=== PATIENT | male | born 1990 | race Caucasian/White ===

== ENCOUNTER 2020-01-11 10:05 | Inpatient (IN) | payer SELFPAY ==
[~2020-01-11] VITALS: Ht 177.8 cm; Wt 63.6 kg
--- NOTE | 2020-01-11 10:48 | NUR ---
DR. MUSTAFA AND DR TOMAS IN TO SEE PT.
[2020-01-11 10:56] LABS: BASOPHILS 0.5 % (0-2); EOSINOPHILS 5.6 % (0-7); HEMATOCRIT 42.2 % (42.0-54.0); HEMOGLOBIN 14.3 g/dL (13.5-17.5); LYMPHOCYTES 22.2 % (15-50); MCH 30.5 pg (26.0-34.0); MCHC 33.9 g/dL (31.0-37.0); MEAN PLATELET VOLUME 10.1 fL (7.4-10.4); NEUTROPHILS 65.7 % (40-80); PLATELET COUNT 225 10x3/uL (130-400); RBC 4.69 10x6/uL (4.20-6.10); RDW 12.8 % (11.5-14.5); WBC 5.5 10x3/uL (4.8-10.8)
[2020-01-11 11:02] LABS: APTT 32.5 SECONDS (22.8-39.4); INR 0.97 (0.85-1.17); PROTIME 12.9 SECONDS (11.6-15.0)
[2020-01-11 11:08] LABS: CALC OSMOLALITY 274 mosm/kg (275-300); CARBON DIOXIDE 26.1 mmol/L (21.0-32.0); CHLORIDE - SERUM 106 mmol/L (98-107); CREATININE - SERUM 0.9 mg/dL (0.6-1.3); GLUCOSE 102 mg/dL (74-106); POTASSIUM - SERUM 4.3 mmol/L (3.5-5.1); SODIUM 138 mmol/L (136-145); UREA NITROGEN 10 mg/dL (7-18); eGFR NON AFRICAN AMERICAN > 90 mL/min (90-120)
[2020-01-11 11:14] LABS: ALBUMIN 4.4 g/dL (3.4-5.0); ALKALINE PHOSPHATASE 92 U/L (30-120); ALT (SGPT) 22 U/L (10-68); BILIRUBIN - TOTAL 0.49 mg/dL (0.2-1.3); PROTEIN - SERUM 7.7 g/dL (6.4-8.2)
--- NOTE | 2020-01-11 11:28 | NUR ---
OR NURSE PRESENT TO TRANSPORT PATIENT AT THIS TIME. PT BELONGINGS PLACED IN BAG AND SENT WITH RN. CONSENTS SIGNED AND PLACED ON CHART. PT IN NO DISTRESS PRIOR TO LEAVING DEPARTMENT.
[2020-01-11 13:48] VITALS: BP 149/62
--- NOTE | 2020-01-11 14:18 | NUR ---
PATIENT RECEIVED TO ROOM FROM RECOVERY IVF INFUSING TO RT. ARM WITH SLING INTACT TO RIGHT ARM WITH RADIAL PULSES NOTED. DENIES ANY PAIN OR DISCOMFORT AT THIS TIME WITH CALL LIGHT IN REACH
[2020-01-11 14:27] VITALS: BP 149/62; Ht 177.8 cm; Wt 63.6 kg
[2020-01-11 15:56] VITALS: BP 127/78
[2020-01-11 20:32] VITALS: BP 110/59
--- NOTE | 2020-01-11 20:35 | NUR ---
LYING IN BED. ALERT AND ORIENTED X4. RESP EVEN AND NONLABORED. DRSG WITH DEE DEE WRAP NOTED TO RUE WITH SLING. RADIAL PULSE GOOD. SLIGHT EDEMA TO RT HAND. HAS SOME NUMBNESS IN RT HAND. ABLE TO WIGGLE FINGERS. RATES PAIN IN RUE 3. D5 1/2 NS @ 50 MLHR INFUSING IN LT AC WITHOUT DIFF. NO DISTRESS. SR ELEVATED X2. CL IN REACH.
--- NOTE | 2020-01-11 23:51 | NUR ---
MEDICATED WITH NORCO FOR C/O PAIN IN RUE RATING 4. CL IN REACH.
[2020-01-12 00:31] VITALS: BP 111/62
--- NOTE | 2020-01-12 01:57 | NUR ---
RESTING WITH EYES CLOSED. RESP EVEN AND NONLABORED. NO DISTRESS. CL IN REACH.
--- NOTE | 2020-01-12 04:26 | NUR ---
V/S TAKEN AT THIS TIME. DENIES NEEDS. CL IN REACH. NO DISTRESS.
[2020-01-12 05:57] VITALS: BP 115/68
[2020-01-12 08:16] VITALS: BP 113/71
--- NOTE | 2020-01-12 09:00 | NUR ---
SLING INTACT TO RUE WITH DECREASED EDEMA TO RT. HAND WITH CAP REFILL <3 SEC. ELEVATED ON PILLOW AT THIS TIME. IVF INFUSING TO RT. ARM W/O ANY S/S OF INFECTION/INFILTRATION. ENCOURAGED TO USE CALL LIGHT FOR ASSSIT WITH DRESSING INTACT TO RT. F/A AND DENIES ANY PAIN OR DISCOMFORT.
[2020-01-12 12:23] VITALS: BP 118/70
[2020-01-12] MEDS ORDERED: BACTRIM DS TAB1 EAC1 PO (13:13)
[2020-01-12] MEDS ORDERED: HYDROCODON-ACE1 EA10 PO (13:14)
--- NOTE | 2020-01-12 14:16 | OP ---
PATIENT NAME: ROCIO SAAB MEDICAL RECORD: [id number] :89 LOCATION:D.MS [id number] ADMISSION DATE:01/11/20 SURGEON: MAGDALENA MUSTAFA MD DATE OF OPERATION: 01/11/2020 PREOPERATIVE DIAGNOSIS: Grade II open ulna fracture. POSTOPERATIVE DIAGNOSIS: Grade II open ulna fracture. PROCEDURE: 1. I&D of open wound, to include skin, subcutaneous tissue, portions of fat, fascia, muscle and bone. 2. Open reduction internal fixation of the ulna fracture -- mid shaft. SURGEON: Magdalena Mustafa MD ANIMAL ANATOMIST: BERYL Whipple INTRAOPERATIVE COMPLICATIONS: None. SUMMARY OF PATHOLOGIC FINDINGS: Consistent with the patient's injury he had a minimally displaced ulnar fracture; however, it was opened. 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 He presented to the urgent care where he had a simple debridement and closure and awoke this morning with substantial and severe pain. He went back to the [facility] where x-rays showed that the patient had a fracture thus it making an open fracture and with the size of this incision, it was a grade II and he did not have appropriate irrigation and debridement for an open fracture. He was sent immediately to the ER. He had maintained as n.p.o. status. He was taken directly to the operating room for intervention that being I&D with plate fixation. OPERATIVE SUMMARY IN DETAIL: After obtaining the appropriate preoperative orthopedic surgery consent as well as anesthetic consultation, evaluation and clearance, the patient was brought to the operating room and placed on the operating table in a supine position. After general laryngeal mask airway was administered, tourniquet was placed on the proximal aspect of the right upper extremity. Right upper extremity was then prepped and draped in routine sterile fashion. The arm was elevated and exsanguinated, tourniquet was inflated to 250 mmHg. At this point, appropriate timeout was taken and agreed upon by all given the patient's unique identifiers. The patient's incision was somewhat diagonal. This was then opened for better access in a Z-plasty incision. Skin flaps were elevated and the wound was copiously irrigated at this point. The bone was found to have an apparent portion missing from the industrial type accident with this weed eater blade. After copious irrigation, curettage, and removal of small bone fragments as well as foreign material, the plate was then affixed under fluoroscopic guidance and put it in compression fashion with locking screws as well. Serial and sequential drill and fill technique was utilized. Radiographs were taken and submitted for radiologist using fluoroscopy. Wound was then irrigated again. While the patient did not have an extensor carpi ulnaris laceration, the paratenon of the ECU was cut, but the tendon itself was in good condition. Paratenon was closed with 2-0 Vicryl followed by fascial closure over the plate with 2-0 Vicryl and then final skin OPERATIVE REPORT [id number] ROCIO SAAB closure was done with 2-0 Vicryl and 4-0 Prolene by BERYL Whipple. Sterile dressings were applied. The tourniquet was deflated. The patient was awakened, taken to recovery room in stable condition. All final needle and sponge counts were correct. TRANSINT:[id number] Voice Confirmation ID: [id number] DOCUMENT ID: [id number] MOON LEMUS, MAGDALENA OAKES at 1416 CC: [id number] DICTATION DATE: 01/11/20 1243 PIPE LAYER HELPER: 01/11/202115 ADM IN [place] [id number] [place] [address]
--- NOTE | 2020-01-12 14:40 | NUR ---
IV DISCONNECTED AND VERBALIZED UNDERSTANDING OF DISCHARGE INSTRUCTIONS. STABLE AT TIME OF DISCHARGE.
--- NOTE | 2020-01-12 15:29 | MORECARE ---
CASE MANAGEMENT DISCHARGE SUMMARY PATIENT: ROCIO SAAB UNIT: [id number] ADM DATE: 01/11/20 AGE: 29 : [birth year] SEX: M ROOM/BED: D.2233 AUTHOR: BERNICE BANERJEE PHYSICIAN: REFERRING PHYSICIAN: MAGDALENA MUSTAFA MD DATE OF SERVICE: 01/12/20 Discharge Plan Patient Name: ROCIO SAAB [facility] [facility] 1990 Planned Disposition: Home Anticipated Discharge Date: 01/12/20 Discharge Date: 01/12/2020 Expected LOS: 1 Initial Reviewer: [email or web address] Initial Review Date: 01/11/2020 Generated: 01/12/20 4:28 pm Patient Name: ROCIO SAAB Page [id number] at 1529 All edits/amendments must be made on the electronic document DICTATION DATE: 01/12/20 1528 DOT COMPLIANCE COORDINATOR: LAZARO 01/12/20 1528 RPT#: [id number] DC DATE:01/12/20 STATUS: DIS IN [facility] [address] [place] [address] END OF REPORT
--- NOTE | 2020-01-12 15:36 | MORECARE ---
CASE MANAGEMENT DISCHARGE SUMMARY PATIENT: ROCIO SAAB UNIT: [id number] ADM DATE: 01/11/20 AGE: 29 : 89 SEX: M ROOM/BED: D.2233 AUTHOR: BERNICE BANERJEE PHYSICIAN: REFERRING PHYSICIAN: MAGDALENA MUSTAFA MD DATE OF SERVICE: 01/12/20 Discharge Plan Patient Name: ROCIO SAAB Facility: [facility]:[place] : 1990 Planned Disposition: Home Anticipated Discharge Date: 01/12/20 Discharge Date: 01/12/2020 Expected LOS: 1 Initial Reviewer: [email or web address] Initial Review Date: 01/11/2020 Generated: 01/12/20 4:35 pm Comments DCP- Discharge Planning Updated by [email or web address]: Conrad Whitehead on 01/12/20 2:[address] Patient Name: ROCIO SAAB Admission Status: ER Accout number: [id number] Admission Date: 01-11-2020 : 1990 Admission Diagnosis: Attending: MAGDALENA MUSTAFA Current LOS: 1 Anticipated DC Date: 01-12-2020 Planned Disposition: Home Primary Insurance: UNINSURED DISCOUNT PLAN Discharge Planning Comments: CM met with patient to complete initial dc planning assessment. CM educated patient on the CM role and verbal consent given by patient to complete assessment. CM verified patient's address, phone number, and emergency contact phone numbers. Patient lives at home alone. Patient states that he does not have a PCP at this time but will look for one soon. Patient states that he fills his medications at [facility]. At discharge patient plans to return Home and feels this is a safe discharge. CM discussed availability of home health, rehab services, and medical equipment. Patient states that he is independent and has no need of DME or SNF, IPR, or HH. Patient denied known discharge needs at this time. Transportation provider at discharge will be with her daughter, Tamra Steen [phone]. CM will continue to follow and will assist as needed with dc plans/needs. Car Cooper: Conrad Whitehead DCPIA - Discharge Planning Initial Assessment Updated by [email or web address]: Conrad Whitehead on 01/12/20 3:34 pm * Is the patient Alert and Oriented? Yes * How many steps to enter\exit or inside your home? 4/0 * PCP NONE * Pharmacy [facility] [address] * Preadmission Environment Home Alone * ADLs Independent * Equipment None * Other Equipment N/a * List name and contact numbers for known caregivers / representatives who currently or will assist patient after discharge: Tamra Steen - [phone] * Verbal permission to speak to the caregivers and representatives has been obtained from the patient. No * Community resources currently utilized None * Please name any agencies selected above. n/a * Additional services required to return to the preadmission environment? No * Can the patient safely return to the preadmission environment? Yes * Has this patient been hospitalized within the prior 30 days at any hospital? No Last DP export: 01/12/20 2:29 p Patient Name: ROCIO SAAB Page [id number] at 1536 All edits/amendments must be made on the electronic document DICTATION DATE: 01/12/20 1536 STAFF PHYSICIAN: LAZARO 01/12/20 1536 RPT#: [id number] DC DATE:01/12/20 STATUS: DIS IN [facility] [address] [place] [address] END OF REPORT
--- NOTE | 2020-01-13 09:14 | MORECARE ---
CASE MANAGEMENT DISCHARGE SUMMARY PATIENT: ROCIO SAAB UNIT: [id number] ADM DATE: 01/11/20 AGE: 29 : 89 SEX: M ROOM/BED: D.2233 AUTHOR: BERNICE BANERJEE PHYSICIAN: REFERRING PHYSICIAN: MAGDALENA MUSTAFA MD DATE OF SERVICE: 01/13/20 Discharge Plan Patient Name: ROCIO SAAB Facility: [facility]:[place] : 1990 Planned Disposition: Home Anticipated Discharge Date: 01/12/20 Discharge Date: 01/12/2020 Expected LOS: 1 Initial Reviewer: [email or web address] Initial Review Date: 01/11/2020 Generated: 01/13/20 10:13 am Comments DCP- Discharge Planning Updated by [email or web address]: Conrad Whitehead on 01/12/20 2:[address] Patient Name: ROCIO SAAB Admission Status: ER Accout number: [id number] Admission Date: 01-11-2020 : 1990 Admission Diagnosis: Attending: MAGDALENA MUSTAFA Current LOS: 1 Anticipated DC Date: 01-12-2020 Planned Disposition: Home Primary Insurance: UNINSURED DISCOUNT PLAN Discharge Planning Comments: CM met with patient to complete initial dc planning assessment. CM educated patient on the CM role and verbal consent given by patient to complete assessment. CM verified patient's address, phone number, and emergency contact phone numbers. Patient lives at home alone. Patient states that he does not have a PCP at this time but will look for one soon. Patient states that he fills his medications at [facility]. At discharge patient plans to return Home and feels this is a safe discharge. CM discussed availability of home health, rehab services, and medical equipment. Patient states that he is independent and has no need of DME or SNF, IPR, or HH. Patient denied known discharge needs at this time. Transportation provider at discharge will be with her daughter, Tamra Steen [phone]. CM will continue to follow and will assist as needed with dc plans/needs. Consumer Marketing Manager: Conrad Whitehead DCPIA - Discharge Planning Initial Assessment Updated by [email or web address]: Conrad Whitehead on 9/20/20 3:34 pm * Is the patient Alert and Oriented? Yes * How many steps to enter\exit or inside your home? 4/0 * PCP NONE * Pharmacy [facility] [address] * Preadmission Environment Home Alone * ADLs Independent * Equipment None * Other Equipment N/a * List name and contact numbers for known caregivers / representatives who currently or will assist patient after discharge: Tamra Steen - [phone] * Verbal permission to speak to the caregivers and representatives has been obtained from the patient. No * Community resources currently utilized None * Please name any agencies selected above. n/a * Additional services required to return to the preadmission environment? No * Can the patient safely return to the preadmission environment? Yes * Has this patient been hospitalized within the prior 30 days at any hospital? No Coverage Notice Reviewer: [email or web address] Darrel Whitehead Notice Issued Date-Time: 01/12/2020 14:19 Notice Type: Patient Choice Letter Notice Delivered To: Patient Relationship to Patient: Self High Speed Operator Name: Delivery Method: HAND - Hand Delivered Bri Days: Prior Verbal Notification: Recipient Understood Notice: Yes Recipient Signature: Yes Med Rec Note Co-signed by Attending: Coverage Notice Comment: Refused HH, SNF, IPR, DME Last DP export: 01/12/20 2:36 p Patient Name: ROCIO SAAB Page [id number] at 0914 All edits/amendments must be made on the electronic document DICTATION DATE: 01/13/20913 COMMUNITY ENGAGEMENT LEADER: LAZARO 01/13/20913 RPT#: [id number] DC DATE:01/12/20 STATUS: DIS IN [facility] [address] [place] [address] END OF REPORT
== END 2020-01-12 14:41 | disposition home or self-care (01) | DRG 512 ==
LOC: D.ER 10:05 → D.MS 12:38
PROVIDERS: Family Medicine; ADMIT Orthopaedic Surgery; ATTEND Orthopaedic Surgery
PROC: 0PSK04Z Reposition Right Ulna with Internal Fixation Device, Open Approach (ICD-10-PCS; principal; 2020-01-11 11:06)
DX: S52.201B Unspecified fracture of shaft of right ulna, initial encounter for open fracture type I or II (principal); Y93.H2 Activity, gardening and landscaping